=== PATIENT | female | born 2000 | race Caucasian/White ===

== ENCOUNTER 2019-11-24 20:15 | Emergency (ER) | payer MEDICAID, OTHER ==
[~2019-11-24] VITALS: Ht 165.1 cm; Wt 70.0 kg
[2019-11-24 21:10] LABS: BASOPHILS % 0.6 % (0.0-2.0); EOSINOPHILS % 0.1 % (0.0-5.0); HEMATOCRIT. 38.2 % (36.0-48.0); LYMPHOCYTES % 10.7 % (20.0-50.0); MEAN CORPUSCULAR HEMOGLOBIN 29.7 pg (28.0-32.0); MEAN CORPUSCULAR VOLUME 87.2 fL (81.0-99.0); MEAN PLATELET VOLUME 10.4 fl (7.4-10.4); NEUTROPHILS % 81.6 % (40.0-76.0); PLATELET 265 x1000/uL (130-400); RED BLOOD CELL COUNT 4.38 mill/uL (4.2-5.4); RED CELL DISTRIBUTION WIDTH 14.3 % (11.6-14.6)
[2019-11-24 21:14] LABS: CHLORIDE 105 mEq/L (98-107)
[2019-11-24 21:19] LABS: ETHANOL BLOOD 151 mg/dL
[2019-11-24] MEDS ORDERED: POTASSIUM CHLORIDE 20MEQ TABLET SR PO NR (21:30)
[2019-11-25 11:18] LABS: *BARBITURATES SCREEN URINE NEGATIVE (NEGATIVE)
[2019-11-25 11:19] LABS: *AMPHETAMINES SCREEN URINE PRESUMTIVE POSITIVE (NEGATIVE); *BENZODIAZEPINES SCREEN URINE NEGATIVE (NEGATIVE); *COCAINE SCREEN URINE PRESUMTIVE POSITIVE (NEGATIVE); CANNABINOID URINE SCREEN NEGATIVE (NEGATIVE); METHADONE URINE SCREEN NEGATIVE (NEGATIVE); OPIATES URINE SCREEN NEGATIVE (NEGATIVE); PHENCYCLIDINE URINE SCREEN NEGATIVE (NEGATIVE)
[2019-11-25] MEDS ORDERED: POTASSIUM CHLORIDE 20MEQ TABLET SR PO ONE (16:30)
[2019-11-25] MEDS ORDERED: LORAZEPAM 1MG TABLET PO ONE (16:30)
[2019-11-25 17:36] VITALS: BP 105/75
== END 2019-11-25 17:35 ==
LOC: ER 20:25
DX: T40.5X2A Poisoning by cocaine, intentional self-harm, initial encounter (principal); T43.622A Poisoning by amphetamines, intentional self-harm, initial encounter; T51.0X2A Toxic effect of ethanol, intentional self-harm, initial encounter; F10.10 Alcohol abuse, uncomplicated; Z11.59 Encounter for screening for other viral diseases; Y90.6 Blood alcohol level of 120-199 mg/100 ml; R03.0 Elevated blood-pressure reading, without diagnosis of hypertension; E87.6 Hypokalemia; Y92.89 Other specified places as the place of occurrence of the external cause
CPT/HCPCS: 36415; 80053; 80305; 80307; 80320; 80329; 81025; 85025; 87635; 93005; 99285; C9803; G0480

== ENCOUNTER 2023-06-05 23:13 | Emergency (ER) | payer MEDICAID, OTHER ==
[~2023-06-05] VITALS: Ht 162.6 cm; Wt 70.0 kg
[2023-06-05 23:23] VITALS: O2SAT 99
[2023-06-05] MEDS: DIPHENHYDRAMINE 50MG/ML VIAL IM PRN (23:57)
[2023-06-05] MEDS: HALOPERIDOL LACTATE 5MG/ML VIAL IM ONE (23:57)
[2023-06-06 00:22] LABS: *AMPHETAMINES SCREEN URINE NEGATIVE (NEGATIVE); *BARBITURATES SCREEN URINE NEGATIVE (NEGATIVE); *BENZODIAZEPINES SCREEN URINE NEGATIVE (NEGATIVE); *COCAINE SCREEN URINE PRESUMPTIVE POSITIVE (NEGATIVE); CANNABINOID URINE SCREEN NEGATIVE (NEGATIVE); ECSTASY MDMA SCREEN URINE NEGATIVE (NEGATIVE); METHADONE URINE SCREEN Neg (NEGATIVE); OPIATES URINE SCREEN NEGATIVE (NEGATIVE); PHENCYCLIDINE URINE SCREEN NEGATIVE (NEGATIVE)
[2023-06-06 01:04] LABS: HEMATOCRIT. 33.8 % (36.0-48.0); HEMOGLOBIN. 10.8 g/dL (12.0-16.0); MEAN CORPUSCULAR HEMOGLOBIN 26.3 pg (28.0-32.0); MEAN CORPUSCULAR VOLUME 82.3 fL (81.0-99.0); MEAN PLATELET VOLUME 9.6 fl (7.4-10.4); PLATELET 333 x1000/uL (130-400); RED BLOOD CELL COUNT 4.11 mill/uL (4.2-5.4); RED CELL DISTRIBUTION WIDTH 15.4 % (11.6-14.6); WHITE BLOOD COUNT 16.9 x1000/uL (4.5-11.0)
[2023-06-06 01:14] LABS: DIFFERENTIAL COMMENT 1
[2023-06-06 01:18] LABS: ACETAMINOPHEN < 2 ug/mL (10-30); CARBON DIOXIDE 13 mEq/L (21-32); CHLORIDE 102 mEq/L (98-107); CREATININE 0.6 mg/dL (0.6-1.0); ETHANOL BLOOD 182 mg/dL (<10); GLUCOSE 95 mg/dL (70-105); HCG SCREEN NEGATIVE; SODIUM 132 mEq/L (136-145)
[2023-06-06 01:23] LABS: UREA NITROGEN BLOOD < 5 mg/dL (9-23)
[2023-06-06] MEDS: POTASSIUM CHLORIDE 20MEQ/PACKET PO NR (02:12)
[2023-06-06 02:42] LABS: ANISOCYTOSIS 1+; PLATELET ESTIMATE NORMAL
[2023-06-06 06:17] VITALS: TEMP 97.2
[2023-06-06 07:24] LABS: CALCIUM 8.2 mg/dL (8.7-10.4)
[2023-06-06 10:07] VITALS: BP 113/70; PULSE 108; RESP 18
== END 2023-06-06 12:21 | disposition home or self-care (01) ==
LOC: ER 23:13
DX: T40.5X1A Poisoning by cocaine, accidental (unintentional), initial encounter (principal); F10.20 Alcohol dependence, uncomplicated; Y92.89 Other specified places as the place of occurrence of the external cause; Y90.6 Blood alcohol level of 120-199 mg/100 ml
CPT/HCPCS: 81025; 36415; 96372; 99291; 80305; 80048; 80307; 80329; 80320; 84703; 85025; J1200; J1630; G0480

== ENCOUNTER 2023-07-10 12:06 | Emergency (ER) | payer MEDICAID ==
[~2023-07-10] VITALS: Ht 167.6 cm; Wt 68.0 kg
[2023-07-10 12:07] VITALS: TEMP 98; O2SAT 98
[2023-07-10 13:05] LABS: BASOPHILS % 0.5 % (0.0-2.0); DIFFERENTIAL COMMENT 0; EOSINOPHILS % 0.1 % (0.0-5.0); HEMATOCRIT. 33.8 % (36.0-48.0); HEMOGLOBIN. 10.8 g/dL (12.0-16.0); LYMPHOCYTES % 18.8 % (20.0-50.0); MEAN CORPUSCULAR HEMOGLOBIN 25.2 pg (28.0-32.0); MEAN CORPUSCULAR VOLUME 78.9 fL (81.0-99.0); MEAN PLATELET VOLUME 9.6 fl (7.4-10.4); NEUTROPHILS % 72.6 % (40.0-76.0); PLATELET 288 x1000/uL (130-400); RED BLOOD CELL COUNT 4.28 mill/uL (4.2-5.4); RED CELL DISTRIBUTION WIDTH 16.3 % (11.6-14.6); WHITE BLOOD COUNT 6.2 x1000/uL (4.5-11.0)
[2023-07-10 13:26] LABS: ACETAMINOPHEN < 2 ug/mL (10-30); ALANINE AMINOTRANSFERASE 9 IU/L (10-49); ALBUMIN 4.1 g/dL (3.2-4.8); ASPARTATE AMINOTRANSFERASE 26 IU/L (<34); BILIRUBIN TOTAL 0.5 mg/dL (0.1-1.0); CALCIUM 8.2 mg/dL (8.7-10.4); CARBON DIOXIDE 20 mEq/L (21-32); CHLORIDE 108 mEq/L (98-107); CREATININE 0.6 mg/dL (0.6-1.0); ETHANOL BLOOD 229 mg/dL (<10); GLUCOSE 85 mg/dL (70-105); PROTEIN TOTAL 6.8 g/dL (6.0-8.3); SODIUM 142 mEq/L (136-145)
[2023-07-10 13:31] LABS: UREA NITROGEN BLOOD < 5 mg/dL (9-23)
[2023-07-10 13:41] LABS: HCG SCREEN NEGATIVE
[2023-07-10] MEDS: POTASSIUM CHLORIDE 20MEQ TABLET SR PO ONE (14:19)
[2023-07-10 19:00] VITALS: BP 104/81; PULSE 83; RESP 17
== END 2023-07-10 19:14 | disposition home or self-care (01) ==
LOC: ER 12:06
DX: R45.1 Restlessness and agitation (principal); F20.9 Schizophrenia, unspecified; F10.129 Alcohol abuse with intoxication, unspecified; Z20.822 Contact with and (suspected) exposure to COVID-19; Y90.7 Blood alcohol level of 200-239 mg/100 ml
CPT/HCPCS: 36415; 80053; 80307; 80320; 80329; 84703; 85025; 87426; 99285; G0480